=== PATIENT | male | born 1945 | race Caucasian/White ===

== ENCOUNTER 2018-05-28 07:38 | Emergency (ER) | payer MEDICARE ==
[2018-05-28] MEDS ORDERED: PROPOFOL 10 MG/ML 20 ML VIAL IV STA (07:47)
[2018-05-28] MEDS ORDERED: SODIUM CHLORIDE 0.9% 1,000 ML IV STA (07:57)
[2018-05-28] MEDS ORDERED: DIPH,PERTUS(ACELL)TETVAC-LF 0.5 ML VIAL IM ONE (07:57)
[2018-05-28] MEDS ORDERED: ceFAZolin 1,000 MG in DEXTROSE/WATER 1 50ML.BAG IVPB STA (07:59)
[2018-05-28 08:03] LABS: Basophils # (A) 0.1 k/uL (0-0.2); Basophils % (A) 1 %; Eosinophils # (A) 0.5 k/uL (0-0.7); Eosinophils % (A) 3 %; HCT 39.5 % (39.0-53.0); HGB 12.8 gm/dL (13.0-17.5); Lymphocytes % (A) 50 %; MCH 33.2 pg (25.0-35.0); MCHC 32.4 g/dL (31.0-37.0); MCV 102.4 fL (80.0-100.0); Macrocytosis Slight; Mean Platelet Volume 7.5; Monocytes # (A) 0.8 k/uL (0-1.0); Monocytes % (A) 6 %; Neutrophils # (A) 5.7 k/uL (1.3-7.7); Neutrophils % (A) 38 %; Platelet Count 217 k/uL (150-450); RBC 3.86 m/uL (4.30-5.90); RDW 12.9 % (11.5-15.5); WBC 14.9 k/uL (3.8-10.6)
[2018-05-28 08:05] VITALS: BP 174/100; PULSE 115; RESP 10; TEMP 96
[2018-05-28 08:05] LABS: Lymphocytes # (A) 7.4 k/uL (1.0-4.8)
[2018-05-28 08:12] LABS: ALT 40 U/L (21-72); AST 48 U/L (17-59); Albumin 3.5 g/dL (3.5-5.0); Alcohol <10 mg/dL; Alkaline Phosphatase 99 U/L (38-126); Amylase 98 U/L (30-110); Anion Gap 11 mmol/L; Blood Urea Nitrogen 15 mg/dL (9-20); Calcium 8.4 mg/dL (8.4-10.2); Carbon Dioxide 19 mmol/L (22-30); Chloride 110 mmol/L (98-107); Glucose 192 mg/dL (74-99); Lipase 141 U/L (23-300); Potassium 3.8 mmol/L (3.5-5.1); Sodium 140 mmol/L (137-145); Total Bilirubin 0.6 mg/dL (0.2-1.3); Total Protein 6.5 g/dL (6.3-8.2)
[2018-05-28 08:15] LABS: INR 1.1 (<1.2); Partial Thromboplastin Time 26.1 sec (22.0-30.0); Prothrombin Time 11.3 sec (9.0-12.0)
--- NOTE | 2018-05-28 08:29 | ED ---
General Adult HPI - General Chief complaint: Fall Stated complaint: Fall Time Seen by Provider: 05/28/18 07:38 Source: patient, EMS, RN notes reviewed Mode of arrival: EMS Limitations: altered mental status - History of Present Illness Initial comments: Patient is an unresponsive 73-year-old male presenting to the emergency department following a fall. EMS reported that patient fell down a flight of stairs and then had concrete on the bottom. Patient was unresponsive and they arrived. Patient has had snoring respirations at 10 that decreased to 6 and EMS is providing ventilatory assistance. EMS also reports patient does have a cut to the back of her head. Patient is unresponsive and unable to provide any information. No known history of blood thinners. Family is not present at this time. Event reportedly occurred just prior to arrival. - Related Data Allergies Allergy/AdvReac Type Severity Reaction Status Date / Time Unable to Assess Allergy Verified 05/28/18 08:05 Review of Systems ROS Statement: Those systems with pertinent positive or pertinent negative responses have been documented in the HPI. ROS Other: All systems not noted in ROS Statement are negative. Limitations: ROS unobtainable due to patients medical condition Past Medical History Past Medical History: Unable to Obtain History of Any Multi-Drug Resistant Organisms: Unobtainable Past Surgical History: Unable to Obtain Past Psychological History: Unable to Obtain Smoking Status: Unknown if ever smoked Past Alcohol Use History: Unable to Obtain Past Drug Use History: Unable to Obtain General Exam Limitations: altered mental status, physical limitation General appearance: obtunded Head exam: Present: other (Posterior scalp soft tissue swelling and blood is present.) Eye exam: Present: other (Pupils are nonreactive and dilated) ENT exam: Present: normal oropharynx, other (Blood coming from the left ear) Neck exam: Present: normal inspection Respiratory exam: Present: rales, other (Snoring respirations with rate between 6 and 10) Cardiovascular Exam: Present: tachycardia GI/Abdominal exam: Present: soft. Absent: tenderness Extremities exam: Present: normal inspection Expanded Neurological exam: Present: other (Limited gag) Eye Response: (1) no response Motor Response: (1) no motor response Verbal Response: (1) no verbal response Psychiatric exam: Present: other (Nonverbal) Skin exam: Present: other (Posterior scalp laceration) Course Vital Signs 05/28/18 08:03 Temperature 96.0 F L Pulse Rate 115 H Respiratory 10 L Rate Blood Pressure 174/100 O2 Sat by Pulse 99 Oximetry - Reevaluation(s) Reevaluation #1: 05/28/18 09:[address] Nugent at [facility] who will discuss with his, surgeon and neurosurgeon and call back. Family is now present and updated. They're made aware of patient's poor condition. 05/28/18 09:04 Endotracheal tube was withdrawn 1 cm. 05/28/18 09:21 Call back from [facility], Dr. Nugent who will accept transfer. EKG Findings - EKG Comments: EKG Findings:: Sinus tachycardia 106. ND 148. QRS 80. QT 328. QTC 435. Normal axis. Normal QRS. No acute ST change. Medical Decision Making - Lab Data Result diagrams: 05/28/18 07:49 05/28/18 07:49 Lab Results 05/28/18 05/28/18 05/28/18 Range/Units 07:49 07:49 07:49 WBC 14.9 H (3.8-10.6) k/uL RBC 3.86 L (4.30-5.90) m/uL Hgb 12.8 L (13.0-17.5) gm/dL Hct 39.5 (39.0-53.0) % MCV 102.4 H (80.0-100.0) fL MCH 33.2 (25.0-35.0) pg MCHC 32.4 (31.0-37.0) g/dL RDW 12.9 (11.5-15.5) % Plt Count 217 (150-450) k/uL Neutrophils % 38 % Lymphocytes % 50 % Monocytes % 6 % Eosinophils % 3 % Basophils % 1 % Neutrophils # 5.7 (1.3-7.7) k/uL Lymphocytes # 7.4 H (1.0-4.8) k/uL Monocytes # 0.8 (0-1.0) k/uL Eosinophils # 0.5 (0-0.7) k/uL Basophils # 0.1 (0-0.2) k/uL Manual Slide Review Performed Macrocytosis Slight PT (9.0-12.0) sec INR (<1.2) APTT (22.0-30.0) sec Sample Site ABG pH (7.35-7.45) ABG pCO2 (35-45) mmHg ABG pO2 (83-108) mmHg ABG HCO3 (21-25) mmol/L ABG Total CO2 (19-24) mmol/L ABG O2 Saturation (94-97) % ABG Base Excess mmol/L Berlin Test FiO2 % Sodium 140 (137-145) mmol/L Potassium 3.8 (3.5-5.1) mmol/L Chloride 110 H (98-107) mmol/L Carbon Dioxide 19 L (22-30) mmol/L Anion Gap 11 mmol/L BUN 15 (9-20) mg/dL Creatinine 0.90 (0.66-1.25) mg/dL Est GFR (CKD-EPI)AfAm >90 (>60 ml/min/1.73 sqM) Est GFR (CKD-EPI)NonAf 84 (>60 ml/min/1.73 sqM) Glucose 192 H (74-99) mg/dL Plasma Lactic Acid Fausto (0.7-2.0) mmol/L Calcium 8.4 (8.4-10.2) mg/dL Total Bilirubin 0.6 (0.2-1.3) mg/dL AST 48 (17-59) U/L ALT 40 (21-72) U/L Alkaline Phosphatase 99 (38-126) U/L Total Creatine Kinase 172 H (55-170) U/L CK-MB (CK-2) 1.9 (0.0-2.4) ng/mL CK-MB (CK-2) Rel Index 1.1 Troponin I 0.016 (0.000-0.034) ng/mL Total Protein 6.5 (6.3-8.2) g/dL Albumin 3.5 (3.5-5.0) g/dL Amylase 98 (30-110) U/L Lipase 141 (23-300) U/L Serum Alcohol <10 mg/dL Blood Type Blood Type Recheck Antibody Screen Spec Expiration Date 05/28/18 05/28/18 05/28/18 Range/Units 07:49 07:49 07:49 WBC (3.8-10.6) k/uL RBC (4.30-5.90) m/uL Hgb (13.0-17.5) gm/dL Hct (39.0-53.0) % MCV (80.0-100.0) fL MCH (25.0-35.0) pg MCHC (31.0-37.0) g/dL RDW (11.5-15.5) % Plt Count (150-450) k/uL Neutrophils % % Lymphocytes % % Monocytes % % Eosinophils % % Basophils % % Neutrophils # (1.3-7.7) k/uL Lymphocytes # (1.0-4.8) k/uL Monocytes # (0-1.0) k/uL Eosinophils # (0-0.7) k/uL Basophils # (0-0.2) k/uL Manual Slide Review Macrocytosis PT 11.3 (9.0-12.0) sec INR 1.1 (<1.2) APTT 26.1 (22.0-30.0) sec Sample Site ABG pH (7.35-7.45) ABG pCO2 (35-45) mmHg ABG pO2 (83-108) mmHg ABG HCO3 (21-25) mmol/L ABG Total CO2 (19-24) mmol/L ABG O2 Saturation (94-97) % ABG Base Excess mmol/L Berlin Test FiO2 % Sodium (137-145) mmol/L Potassium (3.5-5.1) mmol/L Chloride (98-107) mmol/L Carbon Dioxide (22-30) mmol/L Anion Gap mmol/L BUN (9-20) mg/dL Creatinine (0.66-1.25) mg/dL Est GFR (CKD-EPI)AfAm (>60 ml/min/1.73 sqM) Est GFR (CKD-EPI)NonAf (>60 ml/min/1.73 sqM) Glucose (74-99) mg/dL Plasma Lactic Acid Fausto 3.1 H* (0.7-2.0) mmol/L Calcium (8.4-10.2) mg/dL Total Bilirubin (0.2-1.3) mg/dL AST (17-59) U/L ALT (21-72) U/L Alkaline Phosphatase (38-126) U/L Total Creatine Kinase (55-170) U/L CK-MB (CK-2) (0.0-2.4) ng/mL CK-MB (CK-2) Rel Index Troponin I (0.000-0.034) ng/mL Total Protein (6.3-8.2) g/dL Albumin (3.5-5.0) g/dL Amylase (30-110) U/L Lipase (23-300) U/L Serum Alcohol mg/dL Blood Type O Negative Blood Type Recheck CABO Indicated Antibody Screen NEGATIVE Spec Expiration Date 05/31/2018 - 234805/28/18 Range/Units 09:14 WBC (3.8-10.6) k/uL RBC (4.30-5.90) m/uL Hgb (13.0-17.5) gm/dL Hct (39.0-53.0) % MCV (80.0-100.0) fL MCH (25.0-35.0) pg MCHC (31.0-37.0) g/dL RDW (11.5-15.5) % Plt Count (150-450) k/uL Neutrophils % % Lymphocytes % % Monocytes % % Eosinophils % % Basophils % % Neutrophils # (1.3-7.7) k/uL Lymphocytes # (1.0-4.8) k/uL Monocytes # (0-1.0) k/uL Eosinophils # (0-0.7) k/uL Basophils # (0-0.2) k/uL Manual Slide Review Macrocytosis PT (9.0-12.0) sec INR (<1.2) APTT (22.0-30.0) sec Sample Site RRAD ABG pH 7.40 (7.35-7.45) ABG pCO2 31 L (35-45) mmHg ABG pO2 289 H (83-108) mmHg ABG HCO3 19 L (21-25) mmol/L ABG Total CO2 20 (19-24) mmol/L ABG O2 Saturation 100.0 H (94-97) % ABG Base Excess -5.9 mmol/L Berlin Test Yes FiO2 100 % Sodium (137-145) mmol/L Potassium (3.5-5.1) mmol/L Chloride (98-107) mmol/L Carbon Dioxide (22-30) mmol/L Anion Gap mmol/L BUN (9-20) mg/dL Creatinine (0.66-1.25) mg/dL Est GFR (CKD-EPI)AfAm (>60 ml/min/1.73 sqM) Est GFR (CKD-EPI)NonAf (>60 ml/min/1.73 sqM) Glucose (74-99) mg/dL Plasma Lactic Acid Fausto (0.7-2.0) mmol/L Calcium (8.4-10.2) mg/dL Total Bilirubin (0.2-1.3) mg/dL AST (17-59) U/L ALT (21-72) U/L Alkaline Phosphatase (38-126) U/L Total Creatine Kinase (55-170) U/L CK-MB (CK-2) (0.0-2.4) ng/mL CK-MB (CK-2) Rel Index Troponin I (0.000-0.034) ng/mL Total Protein (6.3-8.2) g/dL Albumin (3.5-5.0) g/dL Amylase (30-110) U/L Lipase (23-300) U/L Serum Alcohol mg/dL Blood Type Blood Type Recheck Antibody Screen Spec Expiration Date - Radiology Data Radiology results: report reviewed (Computed tomography scan of the cervical spine shows degenerative changes. No acute osseous lesion. Computed tomography scan of the chest and abdomen and pelvis shows no acute posttraumatic findings. Low-lying ET tube.), image reviewed (Chest and pelvis x -rays show no acute process, low-lying endotracheal tube. Computed tomography scan of the brain shows skull fracture of the parietal bones bilateral. Combination of subarachnoid and subdural hematoma with 1.6 cm shift. There is some interpret mL air.) Disposition Clinical Impression: Skull fracture, Subdural hemorrhage, Subarachnoid hemorrhage Disposition: OTHER INSTITUTION NOT DEFINED Is patient prescribed a controlled substance at d/c from ED?: No Referrals: None,Stated [Primary Care Provider] - 1-2 days Time of Disposition: 09:02 - Out of Hospital Transfer - Req. Specs Out of Hospital Transfer - Requested Specifics: Other Emergency Center
--- NOTE | 2018-05-28 08:31 | XR ---
EXAMINATION TYPE: XR pelvis AP view , ONE VIEW DATE OF EXAM ORDERED: 05/28/2018 HISTORY: Trauma. COMPARISON: None. FINDINGS: There is artifact present from a trauma board. There is been extensive pelvic surgery likely relating to prostate. There are degenerative changes in the lumbar spine. Osseous structures about the pelvis appear unremarkable. No fracture is seen. IMPRESSION: 1. NO ACUTE OSSEOUS LESION. 2. POSTSURGICAL CHANGE. NO
--- NOTE | 2018-05-28 08:32 | XR ---
EXAMINATION TYPE: XR chest 1V portable DATE OF EXAM: 05/28/2018 HISTORY: trauma. REFERENCE: NONE. FINDINGS: The patient is intubated. ET tube is only 1.5 cm from the young and should likely be withd rawn slightly. An NG tube is present and its tip is in the stomach. There is artifact from the trauma board. The lungs appear clear. Pleural spaces are clear. Heart size is within normal limits. IMPRESSION: 1. LOW-LYING ET TUBE. 2. NO ACUTE POSTTRAUMATIC ABNORMALITY.
[2018-05-28 08:35] LABS: Creatine Kinase MB 1.9 ng/mL (0.0-2.4); Troponin I 0.016 ng/mL (0.000-0.034)
[2018-05-28] MEDS ORDERED: LORazepam 2 MG/ML INJ IV PRN ×2 (08:47)
[2018-05-28] MEDS ORDERED: MANNITOL 25% 12.5 GM/50 ML VIAL IV STA (08:48)
--- NOTE | 2018-05-28 08:48 | CT ---
EXAMINATION TYPE: CT brain cspine wo con DATE OF EXAM: 05/28/2018 COMPARISON: NONE HISTORY: Fall-trauma CT DLP: 1581.3 mGycm Automated exposure control for dose reduction was used. TECHNIQUE: CT scan of the head and cervical spine are performed without contrast. FINDINGS: BRAIN: There is a 1.8 cm subdural hematoma on the left extending in the left frontal region extra pos terior parietal region. This is associated with some subarachnoid blood. The subfalcine shift towards the right of 1.6 cm. There is intraparenchymal air. There is left-sided skull fracture which is undi splaced involving the parietal and occipital bones and extends to the posterior parietal bone on the right. There is a scalp hematoma in the left parietal region with both air and blood. There is also s oft tissue swelling involving the right occipital region. IMPRESSION: 1. SKULL FRACTURE INVOLVING BOTH PARIETAL BONES. 2. COMBINATION OF SUBARACHNOID AND SUBDURAL HEMATOMA WITH A 1.6 CM SUBFALCINE SHIFT TOWARDS THE RIGHT . 3. INTRAPARENCHYMAL AIR. CERVICAL SPINE: The patient is intubated. An NG tube is present. There are emphysematous changes in visualized portions of the lungs. Prevertebral soft tissues are ot herwise unremarkable. Vertebral body height and alignment are maintained. Atlantoaxial relationships are normal. There is d egenerative disc disease and hypertrophic spondylosis at C5-6 and C6-7. There is uncovertebral joint disease at these levels. There is facet arthropathy present at C3-4. No cervical fracture is seen. IMPRESSION: 1. NO ACUTE OSSEOUS LESION IN THE CERVICAL SPINE. 2. MODERATE DEGENERATIVE CHANGE. 3. EMPHYSEMATOUS CHANGE.
[2018-05-28] MEDS ORDERED: PROPOFOL 1,000 MG in EMPTY BAG 1 BAG IV SCH (09:00)
--- NOTE | 2018-05-28 09:00 | CT ---
EXAMINATION TYPE: CT ChestAbdPelvis w con DATE OF EXAM: 05/28/2018 COMPARISON: NONE HISTORY: [id number] responsive CT DLP: 715.5 mGycm Automated exposure control for dose reduction was used. TECHNIQUE: Helical acquisition through the abdomen and pelvis was obtained without oral contrast but following the intravenous administration of 100 mL of Isovue 300. The data was formatted in the axia l, coronal and sagittal projections. FINDINGS: The patient is intubated. ET tube tip is just above the young. An NG tube is present and t he tip is within the stomach. There are emphysematous changes throughout the lungs. There is no evidence of lung contusion or pneum othorax. There is dependent atelectasis at the dependent portions of the lungs. There is no significant axillary, mediastinal or hilar adenopathy. The aorta is normal in caliber wit hout evidence of dissection. There is no pleural or pericardial fluid. The heart is not enlarged. Within the abdomen, the liver is upper limits of normal in size measuring 18 cm. The spleen and gallb ladder are unremarkable. Both adrenal glands are normal. Both kidneys demonstrate function and appear morphologically normal. The pancreas is unremarkable. There is no significant retroperitoneal, iliac or inguinal adenopathy. The bladder is collapsed. There are scattered diverticula along the left side of the colon. There is no radiographic evidence o f diverticulitis. The appendix is not clearly visualized. Small bowel loops are normal. There is no free fluid and no free air identified. No pelvic fracture is identified. No spinal fracture or rib fracture is seen. There is moderate degen erative disc disease and hypertrophic spondylosis throughout the spine. IMPRESSION: 1. NO ACUTE POSTTRAUMATIC ABNORMALITY. 2. LOW-LYING ET TUBE. 3. EMPHYSEMATOUS CHANGE. 4. MINIMAL, UNCOMPLICATED DIVERTICULOSIS OF THE LEFT SIDE OF THE COLON. 5. DEGENERATIVE CHANGES WITHIN THE LUMBAR AND THORACIC SPINES.
[2018-05-28] MEDS ORDERED: levETIRAcetam IV 1,000 MG in SALINE 1 100ML.BAG IVPB STA (09:08)
--- NOTE | 2018-05-28 09:11 | P.GSCN ---
History of Present Illness Consult date: 05/28/18 History of present illness: TRAUMA ACTIVATION: Level I status post fall from elevated height HISTORY OF PRESENT ILLNESS: This is a 73-year-old gentleman who presents as a level I trauma activation with GCS 3 at the scene with moderate blood loss emanating from the back of the head. Per reports, incident happened within 1 hour of presentation to the emergency room. Patient has been unresponsive. PAST MEDICAL HISTORY: Unobtainable PAST SURGICAL HISTORY: Unobtainable. MEDICATIONS Unobtainable. ALLERGIES: Unobtainable. SOCIAL HISTORY: Unobtainable. FAMILY HISTORY: Unobtainable. REVIEW OF SYSTEMS: Unobtainable. PHYSICAL EXAM: VITAL SIGNS: Tachycardic GENERAL: Well-developed male. Currently being bag masked. GCS less than 15 HEENT: No sclerae icterus. Moderate bleeding from occiput including left ear. Nares and mouth unobstructed. NECK: Cervical spine midline with cervical hard collar. CHEST: No crepitus or obvious swelling over the chest. No subcutaneous emphysema. CARDIOVASCULAR: Tachycardic. 2+ radial pulses bilaterally. ABDOMEN: Actually soft, nontender, nondistended. No rigidity. No peritonitis. MUSCULOSKELETAL: No clubbing cyanosis or edema. 2+ distal pulses right foot greater than left. NEURO: No spontaneous movement of the upper lower extremities. No focal or lateralizing signs. PSYCH: Not alert. Not oriented to person place or time. SKIN: Perfused. Good skin turgor. LABS: Pending. STUDIES:Pending ASSESSMENT: 1. Level I trauma activation, status post fall high altitude with initial GCS 3 2. Acute respiratory failure requiring intubation PLAN: 1. Recommend CT head, neck, chest, abdomen and pelvis status post fall from high altitude 2. With neurological deficits, recommend transfer to level II/I trauma center for neurosurgical services 3. C-spine immobilization precaution 4. Additional labs including lactate pending EVENTS: I arrived at the time of patient's arrival. Patient was getting supplemental oxygen using bag mask. Moderate bleeding identified along the occiput. In- line traction with change and reinforcement of dressing along the posterior occiput performed. Present for placement of airway, OG tube, and peripheral lines. Initial primary and secondary surgery performed with assessment. Care plan discussed with emergency room provider including transferred to neurosurgical services at outside facility pending additional studies. Critical care time 33 minutes Past Medical History Past Medical History: Unable to Obtain History of Any Multi-Drug Resistant Organisms: Unobtainable Past Surgical History: Unable to Obtain Past Psychological History: Unable to Obtain Smoking Status: Unknown if ever smoked Past Alcohol Use History: Unable to Obtain Past Drug Use History: Unable to Obtain Medications and Allergies Allergies Allergy/AdvReac Type Severity Reaction Status Date / Time Unable to Assess Allergy Verified 05/28/18 08:05 Surgical - Exam Vital Signs Temp Pulse Resp BP Pulse Ox 96.0 F L 115 H 10 L 174/100 99 05/28/18 08:03 05/28/18 08:03 05/28/18 08:03 05/28/18 08:03 05/28/18 08:03 Results - Labs 05/28/18 07:49 05/28/18 07:49 Abnormal Lab Results - Last 24 Hours (Table) 05/28/18 Range/Units 07:49 WBC 14.9 H (3.8-10.6) k/uL RBC 3.86 L (4.30-5.90) m/uL Hgb 12.8 L (13.0-17.5) gm/dL MCV 102.4 H (80.0-100.0) fL
[2018-05-28] MEDS ORDERED: MANNITOL IV ONE (09:15)
[2018-05-28] MEDS ORDERED: SALINE IV ONE (09:15)
[2018-05-28 09:18] LABS: ABG Base Excess -5.9 mmol/L; ABG HCO3 19 mmol/L (21-25); ABG PCO2 31 mmHg (35-45); ABG PO2 289 mmHg (83-108); ABG TCO2 20 mmol/L (19-24)
--- NOTE | 2018-05-28 09:28 | XR ---
EXAMINATION TYPE: XR wrist complete LT , 4 VIEWS DATE OF EXAM ORDERED: 05/28/2018 HISTORY: Pain. COMPARISON: None. FINDINGS: There is degenerative change at the base of the thumb. There is mild widening of the scaph olunate distance. There is triscaphe joint disease. No fracture or dislocation is seen. IMPRESSION: 1. NO ACUTE OSSEOUS LESION. 2. MILD DEGENERATIVE CHANGE.
[2018-05-28 09:36] LABS: Appearance,Urine Clear (Clear); Bacteria,Urine Rare /hpf; Bilirubin,Urine Negative (Negative); Blood,Urine Negative (Negative); Color,Urine Yellow; Glucose,Urine (UA) Negative (Negative); Ketones,Urine Negative (Negative); Leukocyte Esterase,Urine Negative (Negative); Mucus,Urine Few /hpf; Nitrite,Urine Negative (Negative); Protein,Urine 2+ (Negative); RBC,Urine 4 /hpf (0-5); Squamous Epithelial Cell,Urine <1 /hpf (0-4); Urobilinogen,Urine <2.0 mg/dL (<2.0); WBC,Urine 4 /hpf (0-5)
[2018-05-28 09:41] LABS: Amphetamine Screen,Urine Not Detected (NotDetected); Barbiturate Screen,Urine Not Detected (NotDetected); Benzodiazepines Screen,Urine Not Detected (NotDetected); Cocaine Screen,Urine Not Detected (NotDetected); Methadone Screen, Urine Not Detected (NotDetected); Opiate Screen,Urine Detected (NotDetected); Oxycodone Screen, Urine Not Detected (NotDetected); Phencyclidine Screen,Urine Not Detected (NotDetected); Tricyclic Antidepressant,Urine Not Detected (NotDetected); Urn Cannabinoid Scrn Not Detected (NotDetected)
== END 2018-05-28 09:59 | disposition other institution (70) ==
LOC: EC 07:38
DX: S06.6X9A Traumatic subarachnoid hemorrhage with loss of consciousness of unspecified duration, initial encounter (principal); S06.5X9A Traumatic subdural hemorrhage with loss of consciousness of unspecified duration, initial encounter; J96.00 Acute respiratory failure, unspecified whether with hypoxia or hypercapnia; Z23 Encounter for immunization; W10.9XXA Fall (on) (from) unspecified stairs and steps, initial encounter; R40.2430 Glasgow coma scale score 3-8, unspecified time
CPT/HCPCS: 96361 ×3; 31500 ×2; 90471 ×2; 96365 ×2; 96374 ×2; 99291 ×2; 36415; 36600; 94002; 93005; 86900; 86901; 80053; 82150; 82550; 82553; 82805; 83605; 83690; 84484; 85025; 85610; 85730; 86850; 81001; 80306; 72170; 73110; 71045; 72125; 70450; 71260; 74177; 90715; G0480; J0690; J2704 ×2; J1953; Q9967; 80320